=== PATIENT | female | born 1980 | race Two or more races ===

== ENCOUNTER 2017-04-13 00:55 | Emergency (ER) | payer SELFPAY ==
[2017-04-13 04:20] LABS: PLATELET COUNT 294 x10^3mcL (130-400); RED CELL DISTRIBUTION WIDTH 12.6 % (11.5-14.5)
[2017-04-13 04:23] LABS: CALCIUM 8.1 mg/dL (8.5-10.1); CARBON DIOXIDE 26.8 mmol/L (21-32); CHLORIDE SERUM 104 mmol/L (98-107); CREATININE SERUM 0.9 mg/dL (0.6-1.0); GFR1 > 60 mL/min; GLUCOSE SERUM 113 mg/dL (74-106); POTASSIUM SERUM 3.9 mmol/L (3.5-5.1); SODIUM SERUM 137 mmol/L (136-145)
[2017-04-13 04:27] LABS: ALKALINE PHOSPHATASE 81 U/L (46-116); ALT/SGPT 20 U/L (14-59); AST/SGOT 17 U/L (15-37); BILIRUBIN TOTAL 0.53 mg/dL (0.20-1.00); LIPASE 126 IU/L (73-393); TOTAL PROTEIN, SERUM 6.9 g/dL (6.4-8.2)
[2017-04-13 04:28] LABS: ALBUMIN 3.1 g/dL (3.4-5.0)
[2017-04-13 04:33] LABS: BASOPHIL % 2.9 % (0-2)
[2017-04-13 04:59] VITALS: BP 130/78
== END 2017-04-13 04:59 | disposition home or self-care (01) ==
LOC: ED 00:55
PROVIDERS: Emergency Medicine
DX: R00.2 Palpitations (principal); R19.7 Diarrhea, unspecified; K21.9 Gastro-esophageal reflux disease without esophagitis
CPT/HCPCS: 36415; Q0092